=== PATIENT | male | born 1990 | race Hispanic/Latino ===

== ENCOUNTER 2018-01-25 17:52 | Emergency (ER) | payer SELFPAY ==
[2018-01-25] MEDS ORDERED: BUPIVACAINE 0.5% PF 10 ML VIAL ONE (18:33)
--- NOTE | 2018-01-25 19:10 | ER ---
Nurse's Notes [facility] Name: Sarkis Lao Age: 27 yrs Sex: Male : 1990 Arrival Date: 01/25/2018 Time: 17:56 Bed 18 Private MD: None, None Diagnosis: Finger Laceration Presentation: 01/25 17:59 Presenting complaint: Patient states: "I fell and cut my hand with a glass bottle". aa5 Laceration noted to right middle finger, bleeding controlled. Transition of care: patient was not received from another setting of care. Onset of symptoms was January 25, 2018. Risk Assessment: Do you want to hurt yourself or someone else? Patient reports no desire to harm self or others. Initial Sepsis Screen: Does the patient meet any 2 criteria? No. Patient's initial sepsis screen is negative. Does the patient have a suspected source of infection? No. Patient's initial sepsis screen is negative. Care prior to arrival: None. 17:59 Method Of Arrival: Ambulatory aa5 17:59 Acuity: ESTER 4 aa5 19:00 Complicating Factors: The patient fell landing on an outstretched hand. bp Historical: - Allergies: 17:58 No Known Allergies; aa5 - PMHx: 17:58 None; aa5 - PSHx: 17:58 None; aa5 - Immunization history:: Last tetanus immunization: up to date. - Social history:: Smoking status: Patient/guardian denies using tobacco. - Ebola Screening: : No symptoms or risks identified at this time. Screenin:44 Abuse screen: Denies threats or abuse. Nutritional screening: No deficits noted. em Tuberculosis screening: No symptoms or risk factors identified. Fall Risk None identified. Assessment: 18:20 General: Appears in no apparent distress. comfortable, Behavior is calm, cooperative, em Reports cutting in between index and middle finger webbing about an hour ago with a glass bottle. Pain: Complains of pain in left hand Pain currently is 5 out of 10 on a pain scale. Neuro: Level of Consciousness is awake, alert, Oriented to person, place, time, situation. Cardiovascular: Capillary refill < 3 seconds Patient's skin is warm and dry. Respiratory: Airway is patent Respiratory effort is even, unlabored, Respiratory pattern is regular, symmetrical. GI: Abdomen is flat. : No signs and/or symptoms were reported regarding the genitourinary system. Derm: Skin is intact, Skin is pink, warm \\T\\ dry. Musculoskeletal: Range of motion: intact in all extremities. Injury Description: Laceration sustained to left hand is clean, 0.5 to 2.5 cm long, not bleeding, was sustained 1-2 hours ago. 18:45 Reassessment: Patient appears in no apparent distress at this time. I agree with the iw assessment above by Sunny Osorio LVN. 19:00 Reassessment: RECD REPORT FROM SUNNY UPTON. 27YO HM P/W 1CM LAC TO SECOND WEBBING OF R bp HAND. REPAIR IN PROCESS. 19:09 Reassessment: PT D/C HOME AMBULATORY WITH FAMILY, DX WITH R HAND LACERATION. bp Vital Signs: 17:59 BP 107 / 70; Pulse 95; Resp 16 S; Temp 98.4(O); Pulse Ox 97% on R/A; Weight 86.18 kg aa5 (R); Pain 0/10; ED Course: 17:56 Patient arrived in ED. mr 17:56 None, None is Private Physician. mr 17:59 Arm band placed on. aa5 18:01 Triage completed. aa5 18:01 Kevin Leung PA is PHCP. [facility] 18:01 Davey Berumen MD is Attending Physician. [facility] 18:01 Felipe Oates NP is PHCP. pm1 18:09 Sunny Osorio LVN is Primary Nurse. em 18:44 Patient has correct armband on for positive identification. Bed in low position. Call em light in reach. Adult w/ patient. 18:44 Patient did not have IV access during this emergency room visit. em 19:08 Assist provider with laceration repair on right hand that was 2.5 cm. or less using bp sutures. Set up tray. Performed by Kevin NAM Dressed with Neosporin, Patient tolerated well. Dressings: non-adherent dressing x 1 palmar aspect of proximal phalanx of right middle finger. Administered Medications: 18:40 Drug: Marcaine (0.5 %) 10 ml {Note: administered by VIV Brown.} Volume: 10 ml; Route: em Infiltration; Site: wound; 19:06 Follow up: Response: No adverse reaction; Pain is decreased em Outcome: 19:09 Discharge ordered by . callie 19:10 Discharged to home ambulatory, with family. bp 19:10 Condition: stable 19:10 Discharge instructions given to patient, Instructed on discharge instructions, follow up and referral plans. wound care, Demonstrated understanding of instructions, follow-up care, wound care. 19:18 Patient left the ED. bp Signatures: Kevin Leung PA PA jmm Rivera, Maria mr Devon, Sunny, QUALITY ASSURANCE TECHNICIAN QUALITY ASSURANCE TECHNICIAN em Karla Carbajal, RN RN iw Yaima Cole, RN RN aa5 Felipe Oates, SHIV DRY CHAIN PULLER pm1 Ag Villarreal, WON RN bp
--- NOTE | 2018-01-25 19:10 | EDPHYS ---
Physician Documentation [facility] Name: Sarkis Lao Age: 27 yrs Sex: Male : 1990 Arrival Date: 01/25/2018 Time: 17:56 Bed 18 Private MD: None, None ED Physician Davey Berumen HPI: 01/25 18:30 This 27 yrs old Male presents to ER via Ambulatory with complaints of jmm Laceration To Hand. 18:20 [id number]. jmm 18:30 The patient has a laceration. The laceration(s) is(are) located on the left hand. jmm 18:42 This is a 27 year old male with no chronic medical conditions that presents to the ED jmm with a laceration to the base of his right 3rd finger which occurred after a fall in which a glass bottle shattered in his hand. The patient denies other injury. . Historical: - Allergies: 17:58 No Known Allergies; aa5 - PMHx: 17:58 None; aa5 - PSHx: 17:58 None; aa5 - Immunization history:: Last tetanus immunization: up to date. - Social history:: Smoking status: Patient/guardian denies using tobacco. - Ebola Screening: : No symptoms or risks identified at this time. ROS: 18:42 Constitutional: Negative for fever, chills, and weight loss. jmm 18:42 MS/extremity: Positive for laceration. 18:42 Skin: Positive for laceration(s). 18:42 All other systems are negative. Exam: 18:42 Constitutional: This is a well developed, well nourished patient who is awake, alert, jmm and in no acute distress. Head/Face: atraumatic. Chest/axilla: Normal chest wall appearance and motion. Cardiovascular: Regular rate and rhythm. No edema appreciated Respiratory: Normal respirations, no respiratory distress appreciated 18:42 Musculoskeletal/extremity: FROM appreciated to the right 3rd MCP, PIP, and DIP joint. < 2 sec dist cap refill. 18:42 Skin: 1.5 cm laceration noted to the base of the right 3rd finger. 18:42 Neuro: Orientation: is normal, Mentation: is normal, Memory: is normal, Gait: is steady. 18:42 Psych: Behavior/mood is pleasant, cooperative. Vital Signs: 17:59 BP 107 / 70; Pulse 95; Resp 16 S; Temp 98.4(O); Pulse Ox 97% on R/A; Weight 86.18 kg aa5 (R); Pain 0/10; Laceration: 19:00 Wound Repair of 1.5cm ( 0.6in ) subcutaneous laceration to palmar aspect of proximal jmm phalanx of right middle finger. Distal neuro/vascular/tendon intact. Anesthesia: Digital block administered with 3 mls of 0.5% marcaine. Wound prep: Moderate cleansing with betadine by me. Skin closed with 4 5-0 Prolene using simple sutures and sterile technique. Patient tolerated well. MDM: 18:18 Patient medically screened. [facility] 19:07 Data reviewed: vital signs, nurses notes. Counseling: I had a detailed discussion with callie the patient and/or guardian regarding: the historical points, exam findings, and any diagnostic results supporting the discharge/admit diagnosis, the need for outpatient follow up, to return to the emergency department if symptoms worsen or persist or if there are any questions or concerns that arise at home. Administered Medications: 18:40 Drug: Marcaine (0.5 %) 10 ml {Note: administered by VIV Brown.} Volume: 10 ml; Route: em Infiltration; Site: wound; 19:06 Follow up: Response: No adverse reaction; Pain is decreased em Disposition: 01/25/18 19:09 Discharged to Home. Impression: Finger Laceration. - Condition is Stable. - Discharge Instructions: Laceration Care, Adult. - Prescriptions for Cephalexin 500 mg Oral Capsule - take 1 capsule by ORAL route every 6 hours for 10 days; 40 capsule. - Medication Reconciliation Form, Thank You Letter, Antibiotic Education, Prescription Opioid Use form. - Follow up: Private Physician; When: 2 - 3 days; Reason: Continuance of care. Addendum: 01/28/2018 07:36 Co-signature as Attending Physician, Davey Berumen MD. r n Signatures: Kevin Leung PA PA jmm Munoz, Edgar, DIRECTOR OF ENTERPRISE APPLICATIONS DIRECTOR OF ENTERPRISE APPLICATIONS em Davey Berumen MD MD rn Calderon, Audri, RN RN aa5 Ag Villarreal, RN RN bp Corrections: (The following items were deleted from the chart) 01/25 19:18 19:09 01/25/2018 19:09 Discharged to Home. Impression: Finger Laceration. Condition is bp Stable. Forms are Medication Reconciliation Form, Thank You Letter, Antibiotic Education, Prescription Opioid Use. Follow up: Private Physician; When: 2 - 3 days; Reason: Continuance of care. callie
== END 2018-01-25 19:18 | disposition home or self-care (01) ==
LOC: ER 17:52
PROC: 0HQFXZZ Repair Right Hand Skin, External Approach (ICD-10-PCS; principal; 2018-01-25)
DX: S61.212A Laceration without foreign body of right middle finger without damage to nail, initial encounter (principal); W01.110A Fall on same level from slipping, tripping and stumbling with subsequent striking against sharp glass, initial encounter; Y93.9 Activity, unspecified; Y92.9 Unspecified place or not applicable; Y99.9 Unspecified external cause status
CPT/HCPCS: 99283